=== PATIENT | female | born 1945 | race American Indian/Alaskan Native ===

== ENCOUNTER 2017-09-24 09:16 | Day surgery (SDC) | payer MEDICARE ==
[2017-09-24] MEDS ORDERED: Lactated Ringer's 1,000 ML IV ONE (10:55)
[2017-09-24] MEDS ORDERED: Propofol 10 mg/ml Inj (20 ML) ONE ×2 (11:08)
[2017-09-24 11:17] VITALS: O2SAT 100
[2017-09-24 12:56] VITALS: TEMP 97
[2017-09-24 13:02] VITALS: BP 165/95; PULSE 62; RESP 19
== END 2017-09-24 13:00 | disposition home or self-care (01) ==
LOC: C.ENDO 09:16
PROVIDERS: ATTEND Internal Medicine Gastroenterology
DX: D12.2 Benign neoplasm of ascending colon (principal); D12.3 Benign neoplasm of transverse colon; K64.8 Other hemorrhoids; K57.90 Diverticulosis of intestine, part unspecified, without perforation or abscess without bleeding
CPT/HCPCS: 45380; 88305; J2001; J2704; J7120